=== PATIENT | female | born 1975 | race American Indian/Alaskan Native ===

== ENCOUNTER 2017-07-08 18:53 | Emergency (ER) | payer MEDICAID ==
[2017-07-08 19:03] VITALS: BP 121/72
[2017-07-08] MEDS ORDERED: ANTIVERT PO ONE (20:39)
[2017-07-08] MEDS ORDERED: ZOFRAN ODT PO ONE (20:41)
--- NOTE | 2017-07-08 20:53 | Emergency Department Report ---
Chief Complaint: Dizziness Stated Complaint: DIZZY Time Seen by Provider: 07/08/17 20:20 - HPI History of Present Illness: Patient is a 41-year-old [place] female who is presenting with dizziness. Patient states when she turns her head and she stands up she becomes feels sensation of the room was spinning and has become nauseous. She has had no neurological deficit during this time. This is been going on for approximately 3 days. Patient does state that she has sinus congestion. Denies fever no rigidity cough diarrhea at this time. - ROS Review of Systems: History of systems is negative except for those elements in the HPI nurses charts were reviewed past history is insignificant - Exam Vital Signs: Vital Signs 07/08/17 19:02 Temperature 98.7 F Pulse Rate 73 Respiratory 18 Rate Blood Pressure 121/72 O2 Sat by Pulse 96 Oximetry Physical Exam: General exam is normal. Eye exam there is no nystagmus HEENT oropharynx is clear she does have some very mild tenderness in the ethmoids final region is clear to auscultation heart normal heart tones abdomen soft nontender MSE screening note: Focused history and physical exam performed. Due to findings the following was ordered: ED Disposition for MSE Clinical Impression: Benign positional vertigo Disposition: DC-01 TO HOME OR SELFCARE Is pt being admited?: No Does the pt Need Aspirin: No Condition: Fair Instructions: Vertigo (ED) Prescriptions: Meclizine [Antivert] 25 mg PO TID PRN #20 tablet PRN Reason: Vertigo Ondansetron [Zofran Odt] 4 mg PO Q8HR PRN #6 tab.rapdis PRN Reason: Nausea Referrals: PRIMARY CARE, [Primary Care Provider] - 3-5 Days
== END 2017-07-08 20:58 | disposition home or self-care (01) ==
LOC: ED 18:53
DX: H81.10 Benign paroxysmal vertigo, unspecified ear (principal)
CPT/HCPCS: Q0162

== ENCOUNTER 2018-05-17 18:00 | Emergency (ER) | payer MEDICAID ==
[2018-05-17 18:24] VITALS: BP 131/84
[2018-05-17 19:02] LABS: Hematocrit 44.2 % (30.3-42.9); Hemoglobin 14.6 gm/dl (10.1-14.3); Mean Corpuscular HGB Conc 33 % (30-34); Mean Corpuscular Hemoglobin 30 pg (28-32); Mean Corpuscular Volume 91 fl (79-97); Platelet Count 238 K/mm3 (140-440); Red Blood Count 4.88 M/mm3 (3.65-5.03); Red Cell Distribution Width 14.4 % (13.2-15.2)
[2018-05-17 19:17] LABS: BUN/Creatinine Ratio 28; Blood Urea Nitrogen 14 mg/dL (7-17); Calcium 9.6 mg/dL (8.4-10.2); Hemolysis Index 9; Lipase 23 units/L (13-60)
== END 2018-05-17 23:59 ==
LOC: ED 18:00
DX: R10.9 Unspecified abdominal pain (principal); Z53.21 Procedure and treatment not carried out due to patient leaving prior to being seen by health care provider
CPT/HCPCS: 36415; 80048; 83690; 85027

== ENCOUNTER 2019-03-15 22:59 | Emergency (ER) | payer MEDICAID ==
[2019-03-15 23:29] LABS: Eosinophils # (Auto) 0.1 K/mm3 (0.0-0.4); Eosinophils % (Auto) 2.6 % (0.0-4.3); Monocytes # (Auto) 0.4 K/mm3 (0.0-0.8); Monocytes % (Auto) 9.4 % (0.0-7.3)
[2019-03-15 23:51] LABS: Basophils % (Auto) 0.9 % (0.0-1.8); Hematocrit 46.1 % (30.3-42.9); Hemoglobin 15.8 gm/dl (10.1-14.3); Lymphocytes # (Auto) 1.3 K/mm3 (1.2-5.4); Lymphocytes % (Auto) 31.7 % (13.4-35.0); Mean Corpuscular HGB Conc 34 % (30-34); Mean Corpuscular Volume 93 fl (79-97); Platelet Count 215 K/mm3 (140-440); Red Blood Count 4.94 M/mm3 (3.65-5.03); Red Cell Distribution Width 14.3 % (13.2-15.2)
[2019-03-15 23:56] LABS: BUN/Creatinine Ratio 17; Blood Urea Nitrogen 10 mg/dL (7-17); Calcium 9.1 mg/dL (8.4-10.2); Hemolysis Index 69
--- NOTE | 2019-03-16 00:41 | XRay Report ---
CHEST 2 VIEWS INDICATION / CLINICAL INFORMATION: Chest pain radiating to the back. Productive cough. COMPARISON: None available. FINDINGS: SUPPORT DEVICES: None. HEART / MEDIASTINUM: The heart size and pulmonary vasculature are normal. The aorta is normal in melissa yonatan. LUNGS / PLEURA: No significant pulmonary or pleural abnormality. No pneumothorax. ADDITIONAL FINDINGS: No significant additional findings. IMPRESSION: No acute findings. Signer Name: Dougie Wynn MD Signed: 03/16/2019 12:36 AM Workstation Name: [id number]
[2019-03-16] MEDS ORDERED: ZOFRAN IV ONE (00:59)
[2019-03-16] MEDS ORDERED: MORPHINE IV ONE ×2 (00:59→03:11)
[2019-03-16] MEDS ORDERED: BABY ASPIRIN PO ONE (00:59)
[2019-03-16] MEDS ORDERED: ALUM-MAG HYDROX-SIMETH 200-200-20MG/5ML PO ONE (00:59)
--- NOTE | 2019-03-16 01:05 | Emergency Department Report ---
ED Chest Pain HPI - General Chief Complaint: Chest Pain Stated Complaint: LEFT SIDED CHEST PAIN X 1DAY,COUGHING,WEAK Time Seen by Provider: 03/16/19 00:53 Source: patient, EMS Mode of arrival: Wheelchair Limitations: No Limitations - History of Present Illness Initial Comments: 43 y.o aaf who presents to ER with chest pain, that began yesterday while at rest, symptoms has been intermittent since onset and pt rates them as mild in severity. pain is located in left chest, 5/10, reproducible and burning in nature. no n/v, no sob. has not taken any medications for symptoms. improves with nothing, worsening with food. MD Complaint: chest pain -: Gradual Severity scale (0 -10): 10 - Related Data Home Medications Medication Instructions Recorded Confirmed Last Taken ALBUTEROL Inhaler (OR & NICU) 2 puff INHALATION PRN PRN 05/17/13 11/23/13 11/23/13 19:00 [ProAir HFA Inhaler] Previous Rx's Medication Instructions Recorded Last Taken Type Loratadine [Claritin] 10 mg PO DAILY #30 tablet 05/24/13 11/23/13 19:00 Rx Pseudoephedrine (Nf) [Sudafed] 60 mg PO Q6H #24 tablet 05/24/13 11/23/13 19:00 R x Ciprofloxacin HCl [Ciprofloxacin 500 mg PO BID #20 tablet 11/24/13 Unknown Rx TAB] Phenazopyridine [Pyridium] 200 mg PO PC #9 tablet 11/24/13 Unknown Rx Meclizine [Antivert] 25 mg PO TID PRN #20 tablet 07/08/17 Unknown Rx Ondansetron [Zofran Odt] 4 mg PO Q8HR PRN #6 tab.rapdis 07/08/17 Unknown Rx Cyclobenzaprine [Flexeril] 10 mg PO TID PRN #20 tablet 03/16/19 Unknown Rx raNITIdine HCl [Zantac] 150 mg PO BID #60 tablet 03/16/19 Unknown Rx Allergies Allergy/AdvReac Type Severity Reaction Status Date / Time No Known Allergies Allergy Verified 07/08/17 19:01 Heart Score - HEART Score History: Slightly suspicious EKG: Non-specific Age: < 45 Risk factors: 1-2 risk factors Troponin: < normal limit HEART Score: 2 ED Review of Systems ROS: Stated complaint: LEFT SIDED CHEST PAIN X 1DAY,COUGHING,WEAK Other details as noted in HPI Comment: All other systems reviewed and negative ENT: denies: ear pain Respiratory: denies: cough Cardiovascular: chest pain. denies: palpitations, dyspnea on exertion Gastrointestinal: denies: abdominal pain, nausea, vomiting ED Past Medical Hx - Past Medical History Previous Medical History?: Yes Hx Hypertension: No Hx Diabetes: No Hx Renal Disease: No Hx Seizures: No Hx Asthma: Yes (inhaler) Hx HIV: Yes (1991) Additional medical history: heart murnur - Surgical History Past Surgical History?: Yes Additional Surgical History: csection x2 - Social History Smoking Status: Current Every Day Smoker Substance Use Type: None - Medications Home Medications: Home Medications Medication Instructions Recorded Confirmed Last Taken Type ALBUTEROL Inhaler (OR & NICU) 2 puff INHALATION PRN PRN 05/17/13 11/23/13 11/23/13 19:00 History [ProAir HFA Inhaler] Loratadine [Claritin] 10 mg PO DAILY #30 tablet 05/24/13 11/23/13 11/23/13 19:00 Rx Pseudoephedrine (Nf) [Sudafed] 60 mg PO Q6H #24 tablet 05/24/13 11/23/13 11/23/13 19:00 Rx Ciprofloxacin HCl [Ciprofloxacin 500 mg PO BID #20 tablet 11/24/13 Unknown Rx TAB] Phenazopyridine [Pyridium] 200 mg PO PC #9 tablet 11/24/13 Unknown Rx Meclizine [Antivert] 25 mg PO TID PRN #20 tablet 07/08/17 Unknown Rx Ondansetron [Zofran Odt] 4 mg PO Q8HR PRN #6 tab.rapdis 07/08/17 Unknown Rx Cyclobenzaprine [Flexeril] 10 mg PO TID PRN #20 tablet 03/16/19 Unknown Rx raNITIdine HCl [Zantac] 150 mg PO BID #60 tablet 03/16/19 Unknown Rx ED Physical Exam - General Limitations: No Limitations General appearance: alert, in no apparent distress - Head Head exam: Present: atraumatic, normocephalic - Eye Eye exam: Present: normal appearance, PERRL, EOMI Pupils: Present: normal accommodation - ENT ENT exam: Present: normal exam, normal orophraynx - Neck Neck exam: Present: normal inspection - Respiratory Respiratory exam: Present: normal lung sounds bilaterally - Cardiovascular Cardiovascular Exam: Present: regular rate, normal rhythm - GI/Abdominal GI/Abdominal exam: Present: soft - Extremities Exam Extremities exam: Present: normal inspection - Back Exam Back exam: Present: normal inspection - Neurological Exam Neurological exam: Present: alert, oriented X3, CN II-XII intact ED Course Vital Signs 03/15/19 03/16/19 03/16/19 23:05 00:14 01:18 Temperature 98.4 F 98.5 F Pulse Rate 86 72 Respiratory 18 11 L 16 Rate Blood Pressure 109/83 Blood Pressure 110/64 [Left] O2 Sat by Pulse 97 99 Oximetry 03/16/19 04:35 Temperature Pulse Rate 75 Respiratory 15 Rate Blood Pressure Blood Pressure 119/63 [Left] O2 Sat by Pulse 98 Oximetry ED Medical Decision Making - Lab Data Result diagrams: 03/15/19 23:15 03/15/19 23:15 - EKG Data -: EKG Interpreted by Me EKG shows normal: sinus rhythm - EKG Data When compared to previous EKG there are: no significant change Interpretation: nonspecific ST-T wave micheal - Radiology Data Radiology results: report reviewed - Medical Decision Making troponin - x2, told me she was pain free, has f/u in am, return to er if symptoms worsens. - Differential Diagnosis acs, atypical chest pain, gastritis, costochondritis Critical care attestation.: If time is entered above; I have spent that time in minutes in the direct care of this critically ill patient, excluding procedure time. ED Disposition Clinical Impression: Atypical chest pain Disposition: DC-01 TO HOME OR SELFCARE Is pt being admited?: No Does the pt Need Aspirin: No Condition: Stable Instructions: Chest Pain (ED) Prescriptions: Cyclobenzaprine [Flexeril] 10 mg PO TID PRN #20 tablet PRN Reason: Muscle Spasm raNITIdine HCl [Zantac] 150 mg PO BID #60 tablet Referrals: SHUKRI PLAZADODSON MD [place] [Primary Care Provider] - 3-5 Days LYNSEY BENNETT MD [Staff Physician] - 3-5 Days
[2019-03-16 05:36] VITALS: BP 119/63
== END 2019-03-16 04:35 | disposition home or self-care (01) ==
LOC: ED 22:59
DX: R07.89 Other chest pain (principal); J45.909 Unspecified asthma, uncomplicated; Z21 Asymptomatic human immunodeficiency virus [HIV] infection status; F17.200 Nicotine dependence, unspecified, uncomplicated; Z79.899 Other long term (current) drug therapy
CPT/HCPCS: 36415; 71046; 80048; 84484; 85025; 93005; 93010; 96374; 96375; 96376; 99285; J2270; J2405